=== PATIENT | male | born 1990 | race Caucasian/White ===

== ENCOUNTER 2019-11-13 11:34 | Emergency (ER) | payer MEDICAID, OTHER, SELFPAY ==
[~2019-11-13] VITALS: Ht 175.3 cm; Wt 114.0 kg
[2019-11-13 11:51] VITALS: BP 149/78
[2019-11-13] MEDS ORDERED: DEXAMETHASONE 4 MG TABLET ONE (12:51)
[2019-11-13] MEDS ORDERED: DEXAMETHASONE 4 MG TABLET PO ONE (13:00)
== END 2019-11-13 12:55 ==
LOC: ED 12:20
DX: B34.9 Viral infection, unspecified (principal)
CPT/HCPCS: 71046; 87081; 87147; 87880; 93005; 99284

== ENCOUNTER 2020-03-02 11:39 | Emergency (ER) | payer BC, MEDICAID ==
[~2020-03-02] VITALS: Ht 175.3 cm; Wt 113.6 kg
[2020-03-02 11:45] VITALS: BP 162/94
[2020-03-02 12:10] LABS: BASOPHILS # (AUTO) 0.03 x10^3/uL (0-0.1); BASOPHILS % (AUTO) 0 % (0-1); EOSINOPHILS # (AUTO) 0.11 x10^3/uL (0-0.4); EOSINOPHILS % (AUTO) 1 % (1-7); LYMPHOCYTES # (AUTO) 1.48 x10^3/uL (1-3.4); LYMPHOCYTES % (AUTO) 19 % (22-44); MD NO; MEAN CORPUSCULAR HEMOGLOBIN 27.4 pg (27.5-34.5); MEAN CORPUSCULAR HGB CONC 33.7 g/dL (33.2-36.2); MEAN CORPUSCULAR VOLUME 81.3 fL (81-97); MEAN PLATELET VOLUME 9.5 fL (7.4-10.4); MONOCYTES # (AUTO) 0.54 x10^3/uL (0.2-0.8); MONOCYTES % (AUTO) 7 % (2-9); NEUTROPHILS # (AUTO) 5.75 x10^3/uL (1.8-6.8); NEUTROPHILS % (AUTO) 73 % (42-75); PLATELET COUNT 211 x10^3/uL (130-400); RED BLOOD COUNT 5.91 x10^6/uL (4.38-5.82); RED CELL DISTRIBUTION WIDTH 14.3 % (9.4-14.8)
[2020-03-02 12:22] LABS: ALBUMIN 3.9 g/dL (3.4-5.0); ANION GAP 3 mmol/L (5-15); CALCIUM 9.4 mg/dL (8.5-10.1); CHLORIDE 109 mmol/L (98-107); CREATININE 1.27 mg/dL (0.7-1.3)
--- NOTE | 2020-03-02 13:33 | NUR ---
[employer]FIN[employer]ER: PT TO ROOM FROM LOBBY, GAIT SLOW AND STEADY
[2020-03-02] MEDS ORDERED: COLCHICINE 0.6 MG CAPSULE ONE (14:11)
[2020-03-02] MEDS ORDERED: ACETAMINOPHEN 500 MG TABLET ONE (14:14)
[2020-03-02] MEDS ORDERED: COLCHICINE 0.6 MG CAPSULE PO ONE (14:30)
[2020-03-02] MEDS ORDERED: ACETAMINOPHEN 500 MG TABLET PO ONE (14:30)
== END 2020-03-02 14:51 | disposition home or self-care (01) ==
LOC: ED 14:11
DX: M13.0 Polyarthritis, unspecified (principal); M10.9 Gout, unspecified; I10 Essential (primary) hypertension; E78.00 Pure hypercholesterolemia, unspecified
CPT/HCPCS: 36415; 80048; 82040; 82550; 84550; 85025; 99284

== ENCOUNTER 2020-03-26 19:36 | Inpatient (IN) | payer MEDICAID ==
[~2020-03-26] VITALS: Ht 175.3 cm; Wt 114.0 kg
--- NOTE | 2020-03-26 20:05 | NUR ---
PT BIB P/V FOR MULTIPLE SYMPTOMS INCLUDING N/V, COUGH, DIARRHEA (NONE IN LAST 2 DAYS AFTER TAKING IMMODIUM), AND HURST SINCE MONDAY. PT REPORTS GRANDMOTHER WHO PT LIVES WITH HAS BEEN SICK AND WAS TESTED FOR COVID.
[2020-03-26] MEDS ORDERED: ONDANSETRON 2MG/ML, 2ML IVPush ONE (20:30)
[2020-03-26] MEDS ORDERED: SODIUM CHLORIDE 0.9% 1,000ML IVBOLUS ONE (20:30)
[2020-03-26] MEDS ORDERED: SODIUM CHLORIDE FLUSH 10ML SYR IVF ONE (20:30)
[2020-03-26] MEDS ORDERED: ACETAMINOPHEN 500 MG TABLET PO ONE (20:30)
[2020-03-26] MEDS ORDERED: ACETAMINOPHEN 500 MG TABLET ONE (20:32)
[2020-03-26] MEDS ORDERED: ONDANSETRON 2MG/ML, 2ML ONE (20:32)
--- NOTE | 2020-03-26 21:00 | NUR ---
PT REPORTS ATER SPEAKING TO GRANDMOTHER THAT SHE TESTED POSITIVE FOR COVID.
[2020-03-26 21:01] LABS: BASOPHILS # (AUTO) 0.01 x10^3/uL (0-0.1); BASOPHILS % (AUTO) 0 % (0-1); EOSINOPHILS % (AUTO) 0 % (1-7); LYMPHOCYTES # (AUTO) 0.77 x10^3/uL (1-3.4); LYMPHOCYTES % (AUTO) 13 % (22-44); MD NO; MEAN CORPUSCULAR HEMOGLOBIN 27.2 pg (27.5-34.5); MEAN CORPUSCULAR HGB CONC 33.7 g/dL (33.2-36.2); MEAN CORPUSCULAR VOLUME 80.8 fL (81-97); MEAN PLATELET VOLUME 10.1 fL (7.4-10.4); MONOCYTES % (AUTO) 8 % (2-9); NEUTROPHILS # (AUTO) 4.86 x10^3/uL (1.8-6.8); NEUTROPHILS % (AUTO) 79 % (42-75); PLATELET COUNT 138 x10^3/uL (130-400); RED BLOOD COUNT 5.54 x10^6/uL (4.38-5.82); RED CELL DISTRIBUTION WIDTH 14.7 % (9.4-14.8)
[2020-03-26 21:09] LABS: ALANINE AMINOTRANSFERASE 47 U/L (12-78); ALBUMIN 3.5 g/dL (3.4-5.0); ANION GAP 8 mmol/L (5-15); CALCIUM 8.5 mg/dL (8.5-10.1); CHLORIDE 102 mmol/L (98-107); CREATININE 1.46 mg/dL (0.7-1.3)
[2020-03-26 21:11] LABS: ALKALINE PHOSPHATASE 51 U/L (45-117); BILIRUBIN,TOTAL 0.5 mg/dL (0.2-1.0); TOTAL PROTEIN 8.2 g/dL (6.4-8.2)
[2020-03-26] MEDS ORDERED: CEFTRIAXONE PMX 1GM/50ML 50 ML IV ONE (22:00)
[2020-03-26] MEDS ORDERED: AZITHROMYCIN 500 MG in SODIUM CHLORIDE 0.9% 250 ML IV ONE (22:00)
--- NOTE | 2020-03-26 22:06 | NUR ---
REPORT TO EMILY TSANG.
[2020-03-26] MEDS ORDERED: OMEP-110 PO (22:12)
[2020-03-26] MEDS ORDERED: UNKNOWN BP MED PO (22:13)
[2020-03-26] MEDS ORDERED: CEFTRIAXONE PMX 1GM/50ML 50 ML ONE (22:31)
[2020-03-26] MEDS ORDERED: PRAV20TA2 PO (22:50)
--- NOTE | 2020-03-26 22:55 | NUR ---
PT PLACED ON 2L NASAL CANNULA. REPORTS FEELING BETTER WITH O2 ON. GIVEN IV ROCEPHIN. IV AZITHROMYCIN INFUSING. HOSPITALIST AT BEDSIDE DISCUSSING PLAN OF CARE FOR ADMISSION. PT AGREEABLE TO PLAN OF CARE.
--- NOTE | 2020-03-26 23:19 | NUR ---
REPORT GIVEN TO MICHELE FOR ROOM 442. ROOM IS BEING CLEANED AT THIS TIME AND THEY WILL CALL BACK WHEN ROOM IS READY. PT INFORMED.
[2020-03-26] MEDS ORDERED: PHARMACY MAY ADJ FOR RENAL FX MC PRN (23:30)
--- NOTE | 2020-03-27 00:29 | NUR ---
REPORT GIVEN TO MARCELL TSANG
[2020-03-27 01:11] VITALS: BP 123/77
[2020-03-27] MEDS: SODIUM CHLORIDE 0.9% 1,000 ML IV SCH ×2 (01:31→16:58)
[2020-03-27] MEDS: ASCORBATE SODIUM 3,000 MG in SODIUM CHLORIDE 0.9% 250 ML IVPB SCH ×4 (01:42→23:00)
[2020-03-27 05:24] LABS: ANION GAP 6 mmol/L (5-15); CHLORIDE 107 mmol/L (98-107); CREATININE 1.26 mg/dL (0.7-1.3)
[2020-03-27 05:25] LABS: D-DIMER 1.29 ug/mlFEU (0.00-0.52); INTERNATIONAL NORMALIZED RATIO 1.01 (0.93-1.1); PROTHROMBIN TIME 10.7 Seconds (9.6-11.5)
[2020-03-27 06:02] LABS: BASOPHILS # (AUTO) 0.02 x10^3/uL (0-0.1); BASOPHILS % (AUTO) 0 % (0-1); EOSINOPHILS # (AUTO) 0.01 x10^3/uL (0-0.4); EOSINOPHILS % (AUTO) 0 % (1-7); LYMPHOCYTES # (AUTO) 1.12 x10^3/uL (1-3.4); LYMPHOCYTES % (AUTO) 27 % (22-44); MD NO; MEAN CORPUSCULAR HEMOGLOBIN 26.9 pg (27.5-34.5); MEAN CORPUSCULAR HGB CONC 33.4 g/dL (33.2-36.2); MEAN CORPUSCULAR VOLUME 80.7 fL (81-97); MEAN PLATELET VOLUME 10.3 fL (7.4-10.4); MONOCYTES # (AUTO) 0.49 x10^3/uL (0.2-0.8); MONOCYTES % (AUTO) 12 % (2-9); NEUTROPHILS # (AUTO) 2.59 x10^3/uL (1.8-6.8); NEUTROPHILS % (AUTO) 61 % (42-75); PLATELET COUNT 116 x10^3/uL (130-400); RED BLOOD COUNT 4.98 x10^6/uL (4.38-5.82); RED CELL DISTRIBUTION WIDTH 14.6 % (9.4-14.8)
[2020-03-27 06:52] LABS: C-REACTIVE PROTEIN, QUANT 2.8 mg/dL (0.02-0.49)
[2020-03-27 07:05] VITALS: BP 108/61
[2020-03-27] MEDS ORDERED: DOXYCYCLINE 100 MG in DEXTROSE 5% 250 ML IV SCH (09:00)
[2020-03-27] MEDS: CHOLECALCIFEROL 400 UNITS TABLET PO SCH (09:17)
[2020-03-27] MEDS: ZINC SULFATE 220 MG CAPSULE PO SCH (09:17)
[2020-03-27] MEDS: ENOXAPARIN 40 MG/0.4 ML SQ SCH (09:17)
[2020-03-27] MEDS: CEFTRIAXONE PMX 1GM/50ML 50 ML IVPB SCH (09:17)
[2020-03-27] MEDS: ACETAMINOPHEN 325 MG TABLET PO PRN ×3 (09:17→23:00)
[2020-03-27] MEDS: ONDANSETRON ODT 4 MG PO PRN (09:18)
[2020-03-27] MEDS: AZITHROMYCIN 500 MG in SODIUM CHLORIDE 0.9% 250 ML IV SCH (12:14)
[2020-03-27 15:27] VITALS: BP 116/64
[2020-03-27 19:53] VITALS: BP 107/59
[2020-03-28 01:48] VITALS: BP 131/77
[2020-03-28] MEDS: SODIUM CHLORIDE 0.9% 1,000 ML IV SCH (03:52)
[2020-03-28] MEDS: ACETAMINOPHEN 325 MG TABLET PO PRN ×3 (03:58→20:04)
[2020-03-28] MEDS: ASCORBATE SODIUM 3,000 MG in SODIUM CHLORIDE 0.9% 250 ML IVPB SCH ×3 (05:31→19:47)
[2020-03-28 06:12] LABS: ANION GAP 8 mmol/L (5-15); CALCIUM 7.6 mg/dL (8.5-10.1); CHLORIDE 109 mmol/L (98-107)
[2020-03-28 06:13] LABS: CREATININE 1.02 mg/dL (0.7-1.3)
[2020-03-28 06:33] LABS: BASOPHILS # (AUTO) 0.02 x10^3/uL (0-0.1); BASOPHILS % (AUTO) 0 % (0-1); EOSINOPHILS # (AUTO) 0.01 x10^3/uL (0-0.4); EOSINOPHILS % (AUTO) 0 % (1-7); LYMPHOCYTES # (AUTO) 1.38 x10^3/uL (1-3.4); LYMPHOCYTES % (AUTO) 26 % (22-44); MD NO; MEAN CORPUSCULAR HEMOGLOBIN 27.4 pg (27.5-34.5); MEAN CORPUSCULAR HGB CONC 33.4 g/dL (33.2-36.2); MEAN CORPUSCULAR VOLUME 81.9 fL (81-97); MEAN PLATELET VOLUME 9.9 fL (7.4-10.4); MONOCYTES # (AUTO) 0.22 x10^3/uL (0.2-0.8); MONOCYTES % (AUTO) 4 % (2-9); NEUTROPHILS # (AUTO) 3.71 x10^3/uL (1.8-6.8); NEUTROPHILS % (AUTO) 70 % (42-75); PLATELET COUNT 118 x10^3/uL (130-400); RED BLOOD COUNT 4.62 x10^6/uL (4.38-5.82); RED CELL DISTRIBUTION WIDTH 14.7 % (9.4-14.8)
[2020-03-28 08:04] VITALS: BP 105/68
[2020-03-28] MEDS: CEFTRIAXONE PMX 1GM/50ML 50 ML IVPB SCH (08:51)
[2020-03-28] MEDS: ENOXAPARIN 40 MG/0.4 ML SQ SCH (08:51)
[2020-03-28] MEDS: CHOLECALCIFEROL 400 UNITS TABLET PO SCH (08:51)
[2020-03-28] MEDS: ZINC SULFATE 220 MG CAPSULE PO SCH (08:51)
[2020-03-28] MEDS: ONDANSETRON ODT 4 MG PO PRN ×3 (09:59→20:10)
[2020-03-28] MEDS: AZITHROMYCIN 500 MG in SODIUM CHLORIDE 0.9% 250 ML IV SCH (11:08)
[2020-03-28 12:19] VITALS: BP 94/53
[2020-03-28 19:26] VITALS: BP 115/66
[2020-03-29] MEDS: ASCORBATE SODIUM 3,000 MG in SODIUM CHLORIDE 0.9% 250 ML IVPB SCH ×3 (01:33→15:22)
[2020-03-29 01:35] VITALS: BP 133/83
[2020-03-29 05:18] LABS: ALBUMIN 2.7 g/dL (3.4-5.0); ANION GAP 7 mmol/L (5-15); CALCIUM 8.1 mg/dL (8.5-10.1); CHLORIDE 107 mmol/L (98-107)
[2020-03-29 05:40] LABS: ALANINE AMINOTRANSFERASE 26 U/L (12-78); ALKALINE PHOSPHATASE 37 U/L (45-117); BILIRUBIN,TOTAL 0.4 mg/dL (0.2-1.0); CREATININE 1.06 mg/dL (0.7-1.3); TOTAL PROTEIN 6.9 g/dL (6.4-8.2)
[2020-03-29] MEDS ORDERED: ACETAMINOPHEN 650 MG/20.3 ML UDC ONE (06:46)
[2020-03-29] MEDS: ACETAMINOPHEN 325 MG TABLET PO PRN ×2 (06:48→23:28)
[2020-03-29] MEDS: ONDANSETRON ODT 4 MG PO PRN ×3 (06:48→23:28)
[2020-03-29 08:37] VITALS: BP 116/76
[2020-03-29] MEDS: CEFTRIAXONE PMX 1GM/50ML 50 ML IVPB SCH (08:39)
[2020-03-29] MEDS: ZINC SULFATE 220 MG CAPSULE PO SCH (08:40)
[2020-03-29] MEDS: ENOXAPARIN 40 MG/0.4 ML SQ SCH (08:40)
[2020-03-29] MEDS: CHOLECALCIFEROL 400 UNITS TABLET PO SCH (08:40)
[2020-03-29] MEDS: CHOLECALCIFEROL 1,000 UNIT TABLET PO SCH (09:00)
[2020-03-29] MEDS: methylPREDNISolone SOD SUCC 40 MG/ML IV SCH ×2 (12:28→23:28)
[2020-03-29] MEDS: AZITHROMYCIN 500 MG in SODIUM CHLORIDE 0.9% 250 ML IV SCH (12:29)
[2020-03-29 13:48] VITALS: BP 127/74
[2020-03-29 19:47] VITALS: BP 108/67
[2020-03-29] MEDS: MELATONIN 3 MG TABLET PO SCH (23:28)
[2020-03-30] MEDS: ASCORBATE SODIUM 3,000 MG in SODIUM CHLORIDE 0.9% 250 ML IVPB SCH ×4 (00:03→18:12)
[2020-03-30 03:50] VITALS: BP 122/65
[2020-03-30 06:09] LABS: C-REACTIVE PROTEIN, QUANT 4.6 mg/dL (0.02-0.49)
[2020-03-30] MEDS: ENOXAPARIN 60 MG/0.6 ML SQ SCH (06:37)
[2020-03-30] MEDS: ONDANSETRON ODT 4 MG PO PRN ×3 (06:38→18:12)
[2020-03-30 08:39] VITALS: BP 140/77
[2020-03-30] MEDS: CEFTRIAXONE PMX 1GM/50ML 50 ML IVPB SCH (09:43)
[2020-03-30] MEDS: methylPREDNISolone SOD SUCC 40 MG/ML IV SCH ×2 (09:43→20:30)
[2020-03-30] MEDS: CYCLOBENZAPRINE 10 MG TABLET PO SCH ×3 (09:43→20:30)
[2020-03-30] MEDS: ZINC SULFATE 220 MG CAPSULE PO SCH (09:44)
[2020-03-30] MEDS: CHOLECALCIFEROL 1,000 UNIT TABLET PO SCH (09:44)
[2020-03-30] MEDS: AZITHROMYCIN 500 MG in SODIUM CHLORIDE 0.9% 250 ML IV SCH (11:30)
[2020-03-30 12:38] VITALS: BP 104/65
[2020-03-30 19:34] VITALS: BP 144/75
[2020-03-30] MEDS: MELATONIN 3 MG TABLET PO SCH (20:30)
[2020-03-31] MEDS: ONDANSETRON ODT 4 MG PO PRN ×4 (00:27→16:30)
[2020-03-31] MEDS: ASCORBATE SODIUM 3,000 MG in SODIUM CHLORIDE 0.9% 250 ML IVPB SCH ×4 (00:27→17:10)
[2020-03-31 00:29] VITALS: BP 125/69
[2020-03-31] MEDS: ENOXAPARIN 60 MG/0.6 ML SQ SCH (06:30)
[2020-03-31 06:56] VITALS: BP 115/71
[2020-03-31] MEDS: methylPREDNISolone SOD SUCC 40 MG/ML IV SCH ×2 (08:55→21:29)
[2020-03-31] MEDS: CEFTRIAXONE PMX 1GM/50ML 50 ML IVPB SCH (08:55)
[2020-03-31] MEDS: CYCLOBENZAPRINE 10 MG TABLET PO SCH ×3 (08:56→21:30)
[2020-03-31] MEDS: CHOLECALCIFEROL 1,000 UNIT TABLET PO SCH (08:57)
[2020-03-31] MEDS: ZINC SULFATE 220 MG CAPSULE PO SCH (08:58)
[2020-03-31] MEDS: AZITHROMYCIN 500 MG in SODIUM CHLORIDE 0.9% 250 ML IV SCH (11:42)
[2020-03-31 12:42] VITALS: BP 116/69
[2020-03-31 21:25] VITALS: BP 130/80
[2020-03-31] MEDS: MELATONIN 3 MG TABLET PO SCH (21:30)
[2020-04-01] MEDS: ASCORBATE SODIUM 3,000 MG in SODIUM CHLORIDE 0.9% 250 ML IVPB SCH ×4 (00:01→17:48)
[2020-04-01 02:14] VITALS: BP 113/60
[2020-04-01] MEDS: ONDANSETRON ODT 4 MG PO PRN ×4 (05:48→17:48)
[2020-04-01] MEDS: ENOXAPARIN 60 MG/0.6 ML SQ SCH (05:49)
[2020-04-01 08:00] VITALS: BP 86/53
[2020-04-01 10:21] VITALS: BP 121/69
[2020-04-01] MEDS: methylPREDNISolone SOD SUCC 40 MG/ML IV SCH ×2 (10:23→20:54)
[2020-04-01] MEDS: CEFTRIAXONE PMX 1GM/50ML 50 ML IVPB SCH (10:29)
[2020-04-01] MEDS: CYCLOBENZAPRINE 10 MG TABLET PO SCH ×3 (10:32→20:54)
[2020-04-01] MEDS: CHOLECALCIFEROL 1,000 UNIT TABLET PO SCH (10:32)
[2020-04-01] MEDS: ZINC SULFATE 220 MG CAPSULE PO SCH (10:32)
[2020-04-01] MEDS: AZITHROMYCIN 500 MG in SODIUM CHLORIDE 0.9% 250 ML IV SCH (11:53)
[2020-04-01 13:11] VITALS: BP 132/80
[2020-04-01 18:47] VITALS: BP 135/85
[2020-04-01] MEDS: MELATONIN 3 MG TABLET PO SCH (20:54)
[2020-04-02] MEDS: ONDANSETRON ODT 4 MG PO PRN ×2 (00:08→06:02)
[2020-04-02] MEDS: ASCORBATE SODIUM 3,000 MG in SODIUM CHLORIDE 0.9% 250 ML IVPB SCH ×2 (00:08→06:02)
[2020-04-02 00:10] VITALS: BP 123/71
[2020-04-02] MEDS: ENOXAPARIN 60 MG/0.6 ML SQ SCH (06:02)
[2020-04-02] MEDS: methylPREDNISolone SOD SUCC 40 MG/ML IV SCH (07:55)
[2020-04-02] MEDS: CYCLOBENZAPRINE 10 MG TABLET PO SCH (07:56)
[2020-04-02] MEDS: ZINC SULFATE 220 MG CAPSULE PO SCH (07:56)
[2020-04-02] MEDS: CHOLECALCIFEROL 1,000 UNIT TABLET PO SCH (07:56)
[2020-04-02 08:03] VITALS: BP 108/70
[2020-04-02] MEDS ORDERED: DOXY100T PO (09:15)
[2020-04-02] MEDS ORDERED: PRED20TA PO (09:15)
[2020-04-02] MEDS ORDERED: CHOL10003 PO (09:15)
[2020-04-02] MEDS ORDERED: CYCL-259 PO (09:15)
[2020-04-02] MEDS: CEFTRIAXONE PMX 1GM/50ML 50 ML IVPB SCH (10:23)
[2020-04-02] MEDS: AZITHROMYCIN 500 MG in SODIUM CHLORIDE 0.9% 250 ML IV SCH (11:22)
[2020-04-02 12:00] VITALS: BP 114/72
[2020-04-02] MEDS ORDERED: ZINC220C7 PO (13:24)
== END 2020-04-02 14:23 | disposition home or self-care (01) | DRG 871 ==
LOC: ED 20:40 → EDIP 22:41 → 4NW 03-27 01:20
PROVIDERS: ADMIT Internal Medicine; ATTEND Hospitalist
DX: A41.89 Other specified sepsis (principal); N17.0 Acute kidney failure with tubular necrosis; J12.89 Other viral pneumonia; J96.01 Acute respiratory failure with hypoxia; U07.1 COVID-19; D69.6 Thrombocytopenia, unspecified; E78.5 Hyperlipidemia, unspecified; I10 Essential (primary) hypertension; K21.9 Gastro-esophageal reflux disease without esophagitis; M10.9 Gout, unspecified; M19.90 Unspecified osteoarthritis, unspecified site; M62.838 Other muscle spasm; Z87.11 Personal history of peptic ulcer disease
CPT/HCPCS: 36415; 71045; 80048; 80053; 82728; 83036; 83605; 83615; 83735; 84145; 85025; 85379; 85384; 85610; 86140; 87040; 87070; 87205; 87806; 93005; 96374; 96375; 99285; G0378; J0456; J0696; J1650; J2405; Q0162; G0475; J2920; J7030; J7050; U0001-CS

== ENCOUNTER 2020-07-07 05:53 | Emergency (ER) | payer BC, MEDICAID ==
[~2020-07-07] VITALS: Ht 172.7 cm; Wt 119.3 kg
[~2020-07-07 05:53] MED LIST: CHOL10003 PO; CYCL-259 PO; DOXY100T PO; OMEP-110 PO; PRAV20TA2 PO; PRED20TA PO; UNKNOWN BP MED PO; ZINC220C7 PO
[2020-07-07 05:54] VITALS: BP 144/108
[2020-07-07] MEDS ORDERED: LIDOCAINE-MPF 1%, 5ML ONE (06:20)
[2020-07-07] MEDS ORDERED: LIDOCAINE-MPF 1%, 5ML INFIL ONE (06:30)
== END 2020-07-07 08:06 | disposition home or self-care (01) ==
LOC: ED 07:55
DX: S61.411A Laceration without foreign body of right hand, initial encounter (principal); S90.414A Abrasion, right lesser toe(s), initial encounter; X58.XXXA Exposure to other specified factors, initial encounter; Y93.89 Activity, other specified; Y92.098 Other place in other non-institutional residence as the place of occurrence of the external cause; Y99.8 Other external cause status
CPT/HCPCS: 12042; 99284

== ENCOUNTER 2020-07-16 16:12 | Emergency (ER) | payer BC, MEDICAID ==
[~2020-07-16] VITALS: Ht 175.3 cm; Wt 120.7 kg
[2020-07-16 16:14] VITALS: BP 155/99
[2020-07-16] MEDS ORDERED: NEOSPORIN OINT. PKT 1 PACKET ONE (17:06)
--- NOTE | 2020-07-16 17:23 | NUR ---
Patient/Caregiver given discharge instructions and they have confirmed that they understand the instructions. Patient ambulatory with steady gait.
== END 2020-07-16 17:26 ==
LOC: ED 17:20
DX: S61.411D Laceration without foreign body of right hand, subsequent encounter (principal); R53.1 Weakness; I10 Essential (primary) hypertension; X58.XXXD Exposure to other specified factors, subsequent encounter
CPT/HCPCS: 99281

== ENCOUNTER 2020-08-03 17:30 | Emergency (ER) | payer BC, MEDICAID ==
[~2020-08-03] VITALS: Ht 177.8 cm; Wt 121.3 kg
[2020-08-03 17:39] VITALS: BP 144/88
[2020-08-03] MEDS ORDERED: ONDANSETRON ODT 4 MG PO ONE ×2 (18:30→19:30)
[2020-08-03 19:23] LABS: BASOPHILS # (AUTO) 0.05 x10^3/uL (0-0.1); BASOPHILS % (AUTO) 1 % (0-1); EOSINOPHILS # (AUTO) 0.19 x10^3/uL (0-0.4); EOSINOPHILS % (AUTO) 2 % (1-7); LYMPHOCYTES # (AUTO) 1.66 x10^3/uL (1-3.4); LYMPHOCYTES % (AUTO) 17 % (22-44); MD NO; MEAN CORPUSCULAR HGB CONC 32.9 g/dL (33.2-36.2); MEAN PLATELET VOLUME 9.8 fL (7.4-10.4); MONOCYTES # (AUTO) 0.57 x10^3/uL (0.2-0.8); MONOCYTES % (AUTO) 6 % (2-9); NEUTROPHILS # (AUTO) 7.59 x10^3/uL (1.8-6.8); NEUTROPHILS % (AUTO) 76 % (42-75); PLATELET COUNT 196 x10^3/uL (130-400); RED BLOOD COUNT 6.22 x10^6/uL (4.38-5.82); RED CELL DISTRIBUTION WIDTH 14.5 % (9.4-14.8)
[2020-08-03] MEDS ORDERED: ONDANSETRON ODT 4 MG ONE (19:24)
--- NOTE | 2020-08-03 19:25 | NUR ---
29/M. Vomitting last 3 weeks in the morning. Hx of ulcers. Started taking prilosec at home. felt dizzy. Dizziness comes and goes.
[2020-08-03 19:29] LABS: ALBUMIN 4.1 g/dL (3.4-5.0); ANION GAP 7 mmol/L (5-15); CALCIUM 9.7 mg/dL (8.5-10.1); CHLORIDE 103 mmol/L (98-107); CREATININE 1.13 mg/dL (0.7-1.3)
--- NOTE | 2020-08-03 20:02 | NUR ---
Pt given water for PO challenge.
--- NOTE | 2020-08-03 20:37 | NUR ---
Pt passed PO challenge. Ambulatory. Stable. No complaints.
== END 2020-08-03 20:39 | disposition home or self-care (01) ==
LOC: ED 20:16
DX: R11.2 Nausea with vomiting, unspecified (principal); I10 Essential (primary) hypertension; E78.00 Pure hypercholesterolemia, unspecified
CPT/HCPCS: 36415; 80048; 82040; 85025; 99283; Q0162

== ENCOUNTER 2020-10-08 08:26 | Emergency (ER) | payer BC, MEDICAID ==
[~2020-10-08] VITALS: Ht 175.3 cm; Wt 122.5 kg
[2020-10-08] MEDS ORDERED: ASPIRIN 81 MG TABLET CHEW ONE (08:47)
--- NOTE | 2020-10-08 08:52 | NUR ---
BREAK RN: ALL MONITORS IN PLACE, VSS. PT MED NOTED, CALL LIGHT W/I REACH
[2020-10-08] MEDS ORDERED: LORazepam 1MG TABLET ONE (08:55)
[2020-10-08] MEDS ORDERED: LORazepam 2 MG/ML, 1ML IVPush ONE (09:00)
[2020-10-08] MEDS ORDERED: ASPIRIN 81 MG TABLET CHEW PO ONE (09:00)
[2020-10-08] MEDS ORDERED: SODIUM CHLORIDE FLUSH 10ML SYR IVF ONE (09:00)
[2020-10-08] MEDS ORDERED: LORazepam 1MG TABLET PO ONE (09:00)
--- NOTE | 2020-10-08 09:06 | NUR ---
THIS IS A 29 YEAR OLD MALE WHO C/O OF CHEST TIGHTNESS FOLLOWING GENERALIZED TINGLING & NAUSEA/LIGHTHEADEDNESS AT 0700 THIS AM, "I CAN'T CATCH MY BREATH", NEG COVID LAST WEEKEND, HX ANXIETY & MARIJUANA USE
[2020-10-08 09:43] LABS: BASOPHILS % (AUTO) 1 % (0-1); EOSINOPHILS % (AUTO) 2 % (1-7); LYMPHOCYTES % (AUTO) 19 % (22-44); MEAN CORPUSCULAR HEMOGLOBIN 27.3 pg (27.5-34.5); MEAN CORPUSCULAR HGB CONC 33.5 g/dL (33.2-36.2); MEAN PLATELET VOLUME 9.5 fL (7.4-10.4); MONOCYTES % (AUTO) 8 % (2-9); NEUTROPHILS % (AUTO) 71 % (42-75); PLATELET COUNT 192 x10^3/uL (130-400); RED BLOOD COUNT 5.55 x10^6/uL (4.38-5.82)
[2020-10-08 09:48] LABS: MD NO
--- NOTE | 2020-10-08 09:49 | NUR ---
PT SLEEPING RESP EVEN AND UNLABORED
[2020-10-08 09:54] LABS: ALBUMIN 3.8 g/dL (3.4-5.0); ANION GAP 6 mmol/L (5-15); CALCIUM 9.3 mg/dL (8.5-10.1); CHLORIDE 108 mmol/L (98-107)
--- NOTE | 2020-10-08 09:58 | NUR ---
WARM BLANKET GIVEN TO PATIENT, PT STATES PAIN IS BETTER, VERBALIZED NO OTHER NEEDS AT THIS TIME
[2020-10-08 09:59] LABS: CREATININE 1.15 mg/dL (0.7-1.3); TROPONIN I < 0.015 ng/mL (0.000-0.045)
[2020-10-08 10:25] VITALS: BP 165/88
--- NOTE | 2020-10-08 10:25 | NUR ---
Patient/Caregiver given discharge instructions and they have confirmed that they understand the instructions. Patient ambulatory with steady gait.
== END 2020-10-08 10:27 | disposition home or self-care (01) ==
LOC: ED 09:01
DX: R07.89 Other chest pain (principal); F41.1 Generalized anxiety disorder; R20.0 Anesthesia of skin
CPT/HCPCS: 36415; 71045; 80048; 82040; 83880; 84484; 85025; 93005; 99285